=== PATIENT | male | born 1995 | race Caucasian/White ===

== ENCOUNTER 2024-01-08 17:40 | Inpatient (IN) | payer OTHER ==
[~2024-01-08] VITALS: Ht 185.4 cm; Wt 94.0 kg
[2024-01-08] MEDS ORDERED: FLUO20CA22 PO (17:44)
[2024-01-08 18:47] LABS: HEMATOCRIT 48.6 % (42.0-52.0); HEMOGLOBIN 16.6 g/dl (13.5-17.5); MEAN CORPUSCULAR HEMOGLOBIN 30.3 pg (27.0-33.0); MEAN CORPUSCULAR HGB CONC 34.2 g/dl (32.0-36.5); MEAN CORPUSCULAR VOLUME 88.7 fl (80.0-96.0); PLATELET COUNT, AUTOMATED 202 10^3/uL (150-450); RED BLOOD COUNT 5.48 10^6/uL (4.30-6.10); WHITE BLOOD COUNT 8.7 10^3/uL (4.0-10.0)
[2024-01-08 19:09] LABS: AMPHETAMINES LEVEL URINE NEGATIVE (NEGATIVE); BARBITURATES URINE NEGATIVE (NEGATIVE); BENZODIAZEPINES URINE NEGATIVE (NEGATIVE); CANNABINOIDS URINE NEGATIVE (NEGATIVE); COCAINE METABOLITE URINE NEGATIVE (NEGATIVE); METHADONE URINE NEGATIVE (NEGATIVE); OPIATES URINE NEGATIVE (NEGATIVE); PHENCYCLIDINE URINE NEGATIVE (NEGATIVE)
[2024-01-08 19:11] LABS: ETHYL ALCOHOL (ETHANOL) 0.006 % (0.000-0.010)
[2024-01-08 19:12] LABS: SALICYLATE LEVEL < 3.0 MG/DL (<30)
[2024-01-08 19:13] LABS: ALBUMIN 4.9 G/DL (3.2-5.2); ALKALINE PHOSPHATASE 83 U/L (46-116); ALT/SGPT 19 U/L (7.0-40); AST/SGOT < 8 U/L (<34); BILIRUBIN,DIRECT 0.3 MG/DL (<0.4); BILIRUBIN,TOTAL 0.6 MG/DL (0.3-1.2); BLOOD UREA NITROGEN 13 MG/DL (9-23); CALCIUM LEVEL 9.2 MG/DL (8.5-10.1); CARBON DIOXIDE LEVEL 27 MMOL/L (20-31); CHLORIDE LEVEL 108 MMOL/L (98-107); CREATININE FOR GFR 0.85 MG/DL (0.70-1.30); GLOMERULAR FILTRATION RATE > 60.0 (>60); GLUCOSE, FASTING 76 MG/DL (60-100); POTASSIUM SERUM 3.8 MMOL/L (3.5-5.1); SODIUM LEVEL 141 MMOL/L (136-145); TOTAL PROTEIN 7.2 G/DL (5.7-8.2)
[2024-01-08 19:15] LABS: THYROID STIMULATING HORMONE 3.989 uIU/ML (0.55-4.78)
[2024-01-08] MEDS ORDERED: MOM 30ML SUSPENSION UDC PO PRN (20:35)
[2024-01-08] MEDS ORDERED: ACETAMINOPHEN TAB 650MG DOSE (2X325MG) PO PRN (20:35)
[2024-01-08] MEDS ORDERED: MAALOX 30 ML SUSP *UDC PO PRN (20:35)
[2024-01-08] MEDS ORDERED: IBUPROFEN 400MG TAB PO PRN (20:35)
[2024-01-08] MEDS ORDERED: CHOL1250 PO (20:54)
[2024-01-08] MEDS ORDERED: HOME MED LIST COMPLETE! XX SCH (21:05)
[2024-01-08 22:10] VITALS: BP 126/72; TEMP 97.1; O2SAT 98
[2024-01-08] MEDS: traZODone 50 MG TAB PO PRN (23:15)
[2024-01-09 06:35] VITALS: BP 130/77; TEMP 96.8; O2SAT 98
[2024-01-09] MEDS ORDERED: SERTRALINE HCL 50 MG TAB PO SCH (09:00)
[2024-01-09 18:07] VITALS: BP 156/81; TEMP 97.6; O2SAT 98
[2024-01-09] MEDS: diphenhydrAMINE 25MG CAP PO PRN (20:31)
[2024-01-09] MEDS: SERTRALINE HCL 50 MG TAB PO SCH (20:32)
[2024-01-10 06:35] VITALS: BP 101/58; TEMP 97.8; O2SAT 98
[2024-01-10 16:16] VITALS: BP 131/79; TEMP 97.9; O2SAT 100
[2024-01-10 16:29] VITALS: BP 123/70; TEMP 97.6; O2SAT 98
[2024-01-11 06:46] VITALS: BP 121/57; TEMP 99; O2SAT 100
[2024-01-11 16:25] VITALS: BP 133/72; TEMP 97.8; O2SAT 97
[2024-01-12 16:13] VITALS: BP 123/65; TEMP 97.9; O2SAT 97
[2024-01-12] MEDS: traZODone 100 MG TAB PO PRN (21:12)
[2024-01-13 06:18] VITALS: BP 117/59; TEMP 98; O2SAT 97
[2024-01-13 17:23] VITALS: BP 116/69; TEMP 97.5; O2SAT 98
[2024-01-14 06:24] VITALS: BP 136/73; TEMP 98.2; O2SAT 97
[2024-01-14] MEDS ORDERED: TRAZ-257 PO (09:07)
[2024-01-14] MEDS ORDERED: SERT50TA29 PO (09:07)
== END 2024-01-14 13:39 | disposition home or self-care (01) | DRG 881 ==
LOC: M ED 17:40 → M ED INP 20:33 → M PSY 22:07
PROVIDERS: ADMIT Psychiatry & Neurology Psychiatry; ATTEND Student in an Organized Health Care Education/Training Program
DX: F32.A Depression, unspecified (principal); R45.851 Suicidal ideations; F41.9 Anxiety disorder, unspecified; F60.89 Other specific personality disorders; F43.21 Adjustment disorder with depressed mood; Z79.899 Other long term (current) drug therapy

== ENCOUNTER 2024-01-16 23:28 | Inpatient (IN) | payer OTHER ==
[~2024-01-16] VITALS: Ht 185.4 cm; Wt 93.2 kg
[~2024-01-16 23:28] MED LIST: CHOL1250 PO; FLUO20CA22 PO; SERT50TA29 PO; TRAZ-257 PO
[2024-01-16] MEDS ORDERED: ONDA4TAB6 PO (23:35)
[2024-01-17 00:25] LABS: HEMATOCRIT 44.9 % (42.0-52.0); HEMOGLOBIN 15.7 g/dl (13.5-17.5); MEAN CORPUSCULAR HEMOGLOBIN 30.8 pg (27.0-33.0); PLATELET COUNT, AUTOMATED 180 10^3/uL (150-450); WHITE BLOOD COUNT 9.5 10^3/uL (4.0-10.0)
[2024-01-17 00:40] LABS: AMPHETAMINES LEVEL URINE NEGATIVE (NEGATIVE); BARBITURATES URINE NEGATIVE (NEGATIVE); BENZODIAZEPINES URINE NEGATIVE (NEGATIVE); CANNABINOIDS URINE NEGATIVE (NEGATIVE); COCAINE METABOLITE URINE NEGATIVE (NEGATIVE); METHADONE URINE NEGATIVE (NEGATIVE); OPIATES URINE NEGATIVE (NEGATIVE); PHENCYCLIDINE URINE NEGATIVE (NEGATIVE)
[2024-01-17 00:42] LABS: ETHYL ALCOHOL (ETHANOL) < 0.003 % (0.000-0.010)
[2024-01-17 00:44] LABS: ALBUMIN 4.2 G/DL (3.2-5.2); ALKALINE PHOSPHATASE 74 U/L (46-116); ALT/SGPT 24 U/L (7.0-40); AST/SGOT 34 U/L (<34); BILIRUBIN,DIRECT 0.4 MG/DL (<0.4); BILIRUBIN,TOTAL 0.9 MG/DL (0.3-1.2); BLOOD UREA NITROGEN 13 MG/DL (9-23); CARBON DIOXIDE LEVEL 26 MMOL/L (20-31); CHLORIDE LEVEL 109 MMOL/L (98-107); CREATININE FOR GFR 0.91 MG/DL (0.70-1.30); GLOMERULAR FILTRATION RATE > 60.0 (>60); GLUCOSE, FASTING 128 MG/DL (60-100); POTASSIUM SERUM 3.4 MMOL/L (3.5-5.1); SALICYLATE LEVEL < 3.0 MG/DL (<30); SODIUM LEVEL 141 MMOL/L (136-145); TOTAL PROTEIN 6.5 G/DL (5.7-8.2)
[2024-01-17 00:46] LABS: THYROID STIMULATING HORMONE 2.062 uIU/ML (0.55-4.78)
[2024-01-17] MEDS ORDERED: ACETAMINOPHEN TAB 650MG DOSE (2X325MG) PO PRN (01:10)
[2024-01-17] MEDS ORDERED: IBUPROFEN 400MG TAB PO PRN (01:10)
[2024-01-17] MEDS ORDERED: traZODone 50 MG TAB PO PRN (01:10)
[2024-01-17] MEDS ORDERED: MAALOX 30 ML SUSP *UDC PO PRN (01:10)
[2024-01-17] MEDS ORDERED: MOM 30ML SUSPENSION UDC PO PRN (01:10)
[2024-01-17 02:05] VITALS: BP 122/68; TEMP 97.3; O2SAT 97
[2024-01-17 06:31] VITALS: BP 120/61; TEMP 99; O2SAT 96
[2024-01-17] MEDS ORDERED: SERT-141 PO (11:12)
[2024-01-17] MEDS ORDERED: TRAZ-257 PO (11:12)
[2024-01-17] MEDS: SERTRALINE HCL 25 MG TABLET PO SCH (11:47)
[2024-01-17 15:06] VITALS: BP 144/85; TEMP 96.6; O2SAT 97
[2024-01-17] MEDS: traZODone 100 MG TAB PO PRN (20:18)
[2024-01-17] MEDS: diphenhydrAMINE 25MG CAP PO PRN (20:18)
[2024-01-18 06:46] VITALS: BP 120/63; TEMP 98.5; O2SAT 96
[2024-01-18 16:25] VITALS: BP 130/65; TEMP 98.3; O2SAT 98
[2024-01-18] MEDS: diazePAM 2 MG TAB PO ONE (20:58)
[2024-01-19 06:40] VITALS: BP 131/59; TEMP 98.2; O2SAT 94
[2024-01-19 16:27] VITALS: BP 115/63; TEMP 98; O2SAT 98
[2024-01-20] MEDS: diphenhydrAMINE 50MG CAP PO PRN (03:20)
[2024-01-20 06:30] VITALS: BP 111/55; TEMP 98.1; O2SAT 99
[2024-01-20] MEDS: busPIRone 10 MG TAB PO SCH (09:28)
[2024-01-20 17:44] VITALS: BP 137/64; TEMP 97.5
[2024-01-21 06:15] VITALS: BP 117/61; TEMP 97.7; O2SAT 98
[2024-01-21 17:04] VITALS: BP 133/70; TEMP 96.3; O2SAT 95
[2024-01-21] MEDS: QUEtiapine FUMARATE 25 MG TAB PO SCH (21:26)
[2024-01-22 06:32] VITALS: BP 136/66; TEMP 97.3; O2SAT 100
[2024-01-22 17:09] VITALS: BP 113/61; TEMP 97.6
[2024-01-23 06:29] VITALS: BP 104/62; TEMP 98.7; O2SAT 98
[2024-01-23] MEDS ORDERED: QUET1TAB17 PO (10:40)
[2024-01-23] MEDS ORDERED: SERT25TA21 PO (10:40)
[2024-01-23] MEDS ORDERED: BUSP10TA PO (10:40)
== END 2024-01-23 10:50 | disposition home or self-care (01) | DRG 885 ==
LOC: M ED 23:28 → M ED INP 01-17 01:06 → M PSY 01-17 01:56
PROVIDERS: ADMIT Student in an Organized Health Care Education/Training Program; ATTEND Student in an Organized Health Care Education/Training Program
DX: F32.89 Other specified depressive episodes (principal); R45.851 Suicidal ideations; F41.9 Anxiety disorder, unspecified; F43.20 Adjustment disorder, unspecified; F60.89 Other specific personality disorders; Z63.5 Disruption of family by separation and divorce; Z79.899 Other long term (current) drug therapy

== ENCOUNTER 2024-01-30 19:02 | Inpatient (IN) | payer OTHER ==
[~2024-01-30] VITALS: Ht 185.4 cm; Wt 96.1 kg
[~2024-01-30 19:02] MED LIST changes: +BUSP10TA PO; +ONDA4TAB6 PO; +QUET1TAB17 PO; +SERT-141 PO; +SERT25TA21 PO
[2024-01-30] MEDS ORDERED: SERT50TA29 (19:09)
[2024-01-30 19:58] LABS: HEMATOCRIT 46.9 % (42.0-52.0); HEMOGLOBIN 15.8 g/dl (13.5-17.5); MEAN CORPUSCULAR HEMOGLOBIN 30.2 pg (27.0-33.0); MEAN CORPUSCULAR HGB CONC 33.7 g/dl (32.0-36.5); MEAN CORPUSCULAR VOLUME 89.5 fl (80.0-96.0); PLATELET COUNT, AUTOMATED 185 10^3/uL (150-450); RED BLOOD COUNT 5.24 10^6/uL (4.30-6.10); WHITE BLOOD COUNT 7.9 10^3/uL (4.0-10.0)
[2024-01-30 20:31] LABS: ETHYL ALCOHOL (ETHANOL) 0.004 % (0.000-0.010)
[2024-01-30 20:32] LABS: ALBUMIN 4.4 G/DL (3.2-5.2); ALKALINE PHOSPHATASE 79 U/L (46-116); ALT/SGPT 39 U/L (7.0-40); AST/SGOT 17 U/L (<34); BILIRUBIN,DIRECT 0.2 MG/DL (<0.4); BILIRUBIN,TOTAL 0.4 MG/DL (0.3-1.2); BLOOD UREA NITROGEN 14 MG/DL (9-23); CALCIUM LEVEL 8.9 MG/DL (8.5-10.1); CARBON DIOXIDE LEVEL 28 MMOL/L (20-31); CHLORIDE LEVEL 109 MMOL/L (98-107); CREATININE FOR GFR 0.91 MG/DL (0.70-1.30); GLOMERULAR FILTRATION RATE > 60.0 (>60); GLUCOSE, FASTING 88 MG/DL (60-100); POTASSIUM SERUM 4.4 MMOL/L (3.5-5.1); SALICYLATE LEVEL < 3.0 MG/DL (<30); SODIUM LEVEL 142 MMOL/L (136-145); TOTAL PROTEIN 6.9 G/DL (5.7-8.2)
[2024-01-30 20:36] LABS: THYROID STIMULATING HORMONE 3.642 uIU/ML (0.55-4.78)
[2024-01-30 20:41] LABS: AMPHETAMINES LEVEL URINE NEGATIVE (NEGATIVE)
[2024-01-30 20:42] LABS: BARBITURATES URINE NEGATIVE (NEGATIVE); BENZODIAZEPINES URINE NEGATIVE (NEGATIVE); CANNABINOIDS URINE NEGATIVE (NEGATIVE); COCAINE METABOLITE URINE NEGATIVE (NEGATIVE); METHADONE URINE NEGATIVE (NEGATIVE); OPIATES URINE NEGATIVE (NEGATIVE); PHENCYCLIDINE URINE NEGATIVE (NEGATIVE)
[2024-01-30] MEDS ORDERED: ACETAMINOPHEN TAB 650MG DOSE (2X325MG) PO PRN (21:50)
[2024-01-30] MEDS ORDERED: MAALOX 30 ML SUSP *UDC PO PRN (21:50)
[2024-01-30] MEDS ORDERED: traZODone 50 MG TAB PO PRN (21:50)
[2024-01-30] MEDS ORDERED: IBUPROFEN 400MG TAB PO PRN (21:50)
[2024-01-30] MEDS ORDERED: MOM 30ML SUSPENSION UDC PO PRN (21:50)
[2024-01-30] MEDS ORDERED: diphenhydrAMINE 25MG CAP PO PRN (21:50)
[2024-01-30] MEDS ORDERED: BUSP10TA PO (22:51)
[2024-01-30] MEDS ORDERED: ONDA4TAB6 PO (22:51)
[2024-01-30] MEDS ORDERED: QUET1TAB17 PO (22:51)
[2024-01-30] MEDS ORDERED: SERT25TA21 PO (22:51)
[2024-01-30] MEDS ORDERED: HOME MED LIST COMPLETE! XX SCH (22:55)
[2024-01-31 02:10] VITALS: BP 114/73; TEMP 96.9; O2SAT 96
[2024-01-31 06:33] VITALS: BP 119/57; TEMP 97.9
[2024-01-31] MEDS ORDERED: ONDANSETRON 4MG ORAL DISINTEGRATING TAB PO PRN (10:30)
[2024-01-31] MEDS: busPIRone 10 MG TAB PO SCH (10:39)
[2024-01-31] MEDS: VENLAFAXINE **XR** 37.5 MG CAPSULE PO SCH (10:39)
[2024-01-31 14:35] VITALS: BP 131/61; TEMP 98.3; O2SAT 96
[2024-01-31] MEDS: QUEtiapine FUMARATE 25 MG TAB PO SCH (20:05)
[2024-01-31] MEDS: traZODone 100 MG TAB PO PRN (20:05)
[2024-02-01 06:24] VITALS: BP 103/55; TEMP 98.7; O2SAT 97
[2024-02-01] MEDS ORDERED: VENLAFAXINE **XR** 37.5 MG CAPSULE PO SCH (09:00)
[2024-02-01 16:05] VITALS: BP 122/65; TEMP 97.5; O2SAT 97
[2024-02-02 06:34] VITALS: BP 114/55; TEMP 98.4; O2SAT 98
[2024-02-02 17:48] VITALS: BP 134/71; TEMP 97; O2SAT 96
[2024-02-02] MEDS: OLANZapine ORAL DISINTEGRATING TAB 5MG PO PRN (21:41)
[2024-02-03 06:38] VITALS: BP 98/67; TEMP 97.7; O2SAT 98
[2024-02-03 18:29] VITALS: BP 132/60; TEMP 97.9
[2024-02-03] MEDS: busPIRone 5 MG TAB PO SCH (20:21)
[2024-02-04 06:46] VITALS: BP 117/56; TEMP 98; O2SAT 98
[2024-02-04] MEDS: VENLAFAXINE **XR** 75MG CAPSULE PO SCH (09:14)
[2024-02-04 15:26] VITALS: BP 137/70; TEMP 96.9
[2024-02-05 06:25] VITALS: BP 108/57; TEMP 97.3; O2SAT 96
[2024-02-05 18:14] VITALS: BP 121/63; TEMP 98.1
[2024-02-05] MEDS: QUEtiapine FUMARATE 12.5 MG HALF-TAB PO SCH (21:28)
[2024-02-06 06:20] VITALS: BP 108/55; TEMP 98.2; O2SAT 98
[2024-02-06 08:36] LABS: CHOLESTEROL RISK RATIO 3.9 (<5); HDL CHOLESTEROL 40.7 MG/DL (>40); LDL CHOLESTEROL 104.1 MG/DL (<100); NON-HDL-C 118.3 MG/DL
[2024-02-06 16:06] VITALS: BP 127/67; TEMP 98; O2SAT 96
[2024-02-07 06:13] VITALS: BP 106/55; TEMP 98.1; O2SAT 97
[2024-02-07] MEDS ORDERED: VENL75CA47 PO (09:25)
[2024-02-07] MEDS ORDERED: BUSP5TA PO (09:25)
[2024-02-07] MEDS ORDERED: TRAZ-257 PO (09:27)
== END 2024-02-07 12:23 | disposition home or self-care (01) | DRG 885 ==
LOC: M ED 19:02 → M ED INP 21:49 → M PSY 01-31 01:59
PROVIDERS: ADMIT Student in an Organized Health Care Education/Training Program; ATTEND Student in an Organized Health Care Education/Training Program
DX: F32.89 Other specified depressive episodes (principal); R45.851 Suicidal ideations; F41.9 Anxiety disorder, unspecified; F43.20 Adjustment disorder, unspecified; F60.89 Other specific personality disorders; Z79.899 Other long term (current) drug therapy; F60.3 Borderline personality disorder; F60.7 Dependent personality disorder; Z63.5 Disruption of family by separation and divorce